=== PATIENT | female | born 1995 | race Two or more races ===

== ENCOUNTER 2017-01-31 12:05 | Emergency (ER) | payer MEDICAID ==
[2017-01-31 12:55] LABS: % IMMATURE GRANULYOCYTES 1.2 % (0.0-1.1); ABSOLUTE IMMATURE GRANULOCYTES 0.16 10^3/uL (0.00-0.10); ADD DIFF? NO; ADD MORPH? NO; ADD SCAN? NO; ATYPICAL LYMPHOCYTE FLAG 90 (0-99); FRAGMENT RBC FLAG 0 (0-99); HEMATOCRIT 41.4 % (38.0-47.0); HEMOGLOBIN 14.6 g/dL (12.6-16.3); LEFT SHIFT FLG 20 (0-99); LIPEMIA HEMOLYSIS FLAG 90 (0-99); MEAN CELL HEMOGLOBIN CONCENTR. 35.3 g/dL (32.4-36.7); MEAN CELL VOLUME 85.2 fL (81.5-99.8); MEAN PLATELET VOLUME 9.5 fL (8.7-11.7); PLATELET CLUMPS FLAG 0 (0-99); PLATELET COUNT 150 10^3/uL (150-400); RED BLOOD CELL COUNT 4.86 10^6/uL (4.18-5.33); RED CELL DISTRIBUTION WIDTH 12.3 % (11.5-15.2)
--- NOTE | 2017-01-31 13:00 | EDPHY ---
H & P Time Seen by Provider: 01/31/17 12:25 HPI/ROS: CHIEF COMPLAINT: Joint pain, fever HPI: The patient is a 21-year-old female with no significant past medical history. She complains of severe pain in her left elbow as well as diffuse joint aches of her arms and lower extremities over the last 3 days. She describes a fever to 103 degrees 3 days ago. The patient was seen at the [facility] 2 days ago with a complaint of bilateral arm redness and streaking. I reviewed these records in [facility]. She had a negative ultrasound at that time of both arms, negative ESR an elevated white blood cell count. She was referred to [facility]. The patient has been treated with IM Rocephin, Keflex and prednisone. REVIEW OF SYSTEMS: Aside from elements discussed in the HPI, a comprehensive 10-point review of systems was reviewed and is negative. PMH: Some remote history of cutting, no known autoimmune disease. SOCIAL HISTORY: Denies alcohol or drug abuse. PHYSICAL EXAM: General:Patient is alert, in no acute distress. ENT:Eyes are normal to inspection. ENT inspection normal. Neck: Normal inspection. Full range of motion. Respiratory:No respiratory distress. Breath sounds normal bilaterally. Cardiovascular: Regular rate and rhythm. Strong peripheral pulses. Normal cap refill. Abdomen:The abdomen is nontender to palpation. There are no peritoneal signs. There are normal bowel sounds. Back: Normal to inspection. No tenderness to palpation. Skin: Mild faint reticular rash noted on volar aspect of both forearms. No lymphatic streaking. No cellulitis. No warmth. Extremities: Normal appearance. Full range of motion. Neuro: Oriented x3. Normal motor function. Normal sensory function. Smoking Status: Never smoked Constitutional: Initial Vital Signs Temperature (C) 36.8 C 01/31/17 12:06 Heart Rate 83 01/31/17 12:06 Respiratory Rate 18 01/31/17 12:06 Blood Pressure 111/88 H 01/31/17 12:06 O2 Sat (%) 95 01/31/17 12:06 O2 Delivery Mode Room Air Allergies/Adverse Reactions: No Known Allergies Allergy (Unverified 01/31/17 12:11) Home Medications: Medication Instructions Recorded Naproxen 500 mg PO BID #20 tablet 01/31/17 MDM/Departure - MDM Medications Given: Discontinued Medications Ketorolac Tromethamine (Toradol) 15 mg IVP EDNOW ONE Stop: 01/31/17 15:01 Last Admin: 01/31/17 15:20 Dose: 15 mg ED Course/Re-evaluation: This patient presents with continued poly articular pain in the setting of recent ER visit and discontinuation of steroids. I reviewed the patient's laboratory tests and ER visit notes from her recent [facility] visit. Her ESR was normal at that time and remains so today. Patient has no signs or symptoms of septic arthritis. Her vital signs are normal and she is afebrile. I expanded the workup to include multiple autoimmune labs, but explained to the patient that these would not be back today. The patient already has an appointment with a siding applicator. She requested additional steroid medication , but I explained to her that placing her on a month long course of steroids would likely cause significant risk for her. I have prescribed her naproxen. The etiology of the patient's symptoms is unclear, but I think that she is safe to continue with her outpatient workup. We discussed strict return precautions. - Depart Disposition: Home, Routine, Self-Care Clinical Impression: Polyarthropathy Condition: Good Instructions: Autoimmune Disease (ED) Additional Instructions: Follow-up with your siding applicator as scheduled. Follow-up with your primary doctor within 1 week. We have sent off a number of labs which will come back in the next 48 hours. Please call the ER to obtain these results. Return to the emergency department immediately for fever, worsening pain, numbness or other concerns. Prescriptions: Naproxen 500 mg PO BID #20 tablet Referrals: UNKNOWN,DOCTOR [Other] - As per Instructions
[2017-01-31 13:06] LABS: ANION GAP 11 mEq/L (8-16); CALCIUM 9.1 mg/dL (8.5-10.4); CARBON DIOXIDE 24 mEq/l (22-31); CHLORIDE 100 mEq/L (97-110); CREATININE 0.7 mg/dL (0.6-1.0); GLOMERULAR FILTRATION RATE > 60; GLUCOSE 98 mg/dL (70-100); SODIUM 135 mEq/L (134-144)
[2017-01-31 13:12] VITALS: RESP 20
[2017-01-31 13:20] LABS: SEDIMENTATION RATE 13 MM/HR (0-20)
[2017-01-31] MEDS ORDERED: KETOROLAC 30 MG/1 ML SDV IVP ONE (15:00)
[2017-01-31 15:25] VITALS: BP 125/73; PULSE 88; TEMP 99.1; O2SAT 93
== END 2017-01-31 15:25 | disposition home or self-care (01) ==
DX: M13.0 Polyarthritis, unspecified (principal)
CPT/HCPCS: 96374; J1885